=== PATIENT | male | born 1955 | race Caucasian/White ===

== ENCOUNTER 2020-05-14 06:49 | Outpatient (CLI) | payer BC, SELFPAY ==
[2020-05-14 07:34] LABS: Basophils Absolute Auto 0.1 K/mm3 (0.0-0.1); Basophils Percent Auto 1.2 % (0.2-1.2); Eosinophils Absolute Auto 0.2 K/mm3 (0-0.3); Eosinophils Percent Auto 2.6 % (0-4.4); Hematocrit 47.6 % (42.0-52.0); Immature Granulocyte Absolute 0.03 K/mm3 (0.00-0.031); Immature Granulocyte Percent A 0.5 % (0-0.5); Lymphocytes Absolute Auto 2.24 K/mm3 (0.9-3.2); Lymphocytes Percent Auto 34.3 % (18.3-44.2); Mean Corpuscular HGB Conc 33.6 g/dl (32-36); Mean Corpuscular Hemoglobin 31.1 pg (26-34); Mean Corpuscular Volume 92.6 fl (80-100); Mean Platelet Volume 9.5 fl (7.4-10.4); Monocytes Absolute Auto 0.7 K/mm3 (0.1-0.6); Neutrophils Absolute Auto 3.4 K/mm3 (1.3-6.7); Neutrophils Percent Auto 51.4 % (45.5-73.1); Platelet Count Result 249 k/mm3 (150-375); Red Blood Count 5.14 M/mm3 (4.6-6.20); Red Cell Distribution Width 13.4 % (11.5-14.5); White Blood Count 6.5 K/mm3 (4.5-10.0)
[2020-05-14 07:46] LABS: Alanine Aminotransferase 32 U/L (4-50); Albumin Level 4.1 g/dL (3.5-5.1); Alkaline Phosphatase 82 U/L (38-126); Anion Gap 8 mmol/L (8-16); Aspartate Amino Transferase 32 U/L (17-59); Bilirubin,Total 0.9 mg/dL (0.2-1.3); Blood Urea Nitrogen 16 mg/dL (9-20); Calcium 8.9 mg/dL (8.4-10.2); Carbon Dioxide 28 mmol/L (22-30); Chloride 103 mmol/L (98-107); Cholesterol 231 mg/dL (0-200); Estimated Glomerular Filt Rate > 60; Glucose 109 mg/dL (75-110); HDL Direct 41 mg/dL; Potassium 4.5 mmol/L (3.4-5.0); Sodium 139 mmol/L (137-145); Triglycerides 135 mg/dL (<150)
[2020-05-14 07:57] LABS: LDL Cholesterol Direct 179 mg/dL
[2020-05-14 08:16] LABS: Prostate Specific Antigen 0.3 ng/mL (< OR = 4.0)
[2020-05-14 08:21] LABS: Vitamin D 25 Hydroxy 26.9 ng/mL
[2020-05-22 22:44] LABS: Testosterone Total 227 ng/dL (250-1100)
== END 2020-05-14 06:50 | disposition home or self-care (01) ==
PROVIDERS: PCP Family Medicine; Visit Provider Family Medicine
DX: E78.2 Mixed hyperlipidemia (principal); R53.82 Chronic fatigue, unspecified; Z12.5 Encounter for screening for malignant neoplasm of prostate; E55.9 Vitamin D deficiency, unspecified; R68.82 Decreased libido
CPT/HCPCS: 36415; 80048; 80061; 80076; 82306; 84153; 84402; 84403; 84443; 85025; G0103

== ENCOUNTER 2021-01-23 09:25 | Emergency (ER) | payer OTHER, SELFPAY ==
--- NOTE | ~2021-01-23 | XR_ITS ---
XR hip RT 2V w AP pelvis DATE: 01/23/2021 10:14 INDICATION: Patient fell on concrete. Right hip injury, pain TECHNIQUE: AP pelvis. AP and lateral right hip. COMPARISON: None FINDINGS: The pubic symphysis and sacroiliac joints are intact. Hip joint spaces appear symmetric and relatively preserved. No pelvic fracture or bone destruction. No fracture, dislocation, avascular necrosis or bone destruction of the right hip. Degenerative disc disease at L4-5 and L5-S1. IMPRESSION: No pelvic or right hip fracture or dislocation Reviewed, dictated and finalized at location B.
--- NOTE | ~2021-01-23 | CT_ITS ---
EXAMINATION: CT abdomen pelvis w con DATE: 01/23/2021 10:25 INDICATION: Fall with right hip/pelvis pain. TECHNIQUE: Computed tomography (CT) of the abdomen and pelvis was performed with 100 mL Omnipaque-350 intravenous contrast. Automated exposure control and iterative reconstruction technique were employe d. The dose-length product was 1322.32 mGy-cm. COMPARISON: None FINDINGS: Elevation of the right hemidiaphragm with mild discoid atelectasis in the right middle and lower lobe s. Heart size is normal. Atherosclerotic coronary artery calcification. No pericardial or pleural eff usion. Diffuse hepatic steatosis with focal sparing along the gallbladder fossa and more focal steato sis at the ligamentum teres. Gallbladder, spleen, pancreas, right kidney and bilateral adrenal glands are normal. 8 mm left renal cyst. Punctate calcification in the tail of the otherwise normal-appeari ng pancreas which likely represent sequela of chronic pancreatitis. Mild scattered colonic diverticul osis without adjacent inflammatory change to suggest diverticulitis. Small bowel and appendix are nor mal. Bladder and prostate are unremarkable. No free intraperitoneal gas or fluid. No pathologically e nlarged abdominal or pelvic lymphadenopathy. There is calcified atherosclerosis of the aorta and many of the other arteries. Acute appearing compression fracture involving the right side of the superior endplate of L3 with approximately 20% vertebral body height loss. No other acute osseous abnormality . IMPRESSION: 1. Superior endplate compression fracture at the right side of L3 with mild right sided vertebral bod y height loss. 2. No acute intra-abdominal/pelvic process. Reviewed, dictated and finalized at location A. IMPRESSION: 1. Superior endplate compression fracture at the right side of L3 with mild rig ht sided vertebral body height loss. 2. No acute intra-abdominal/pelvic process.
[2021-01-23 09:25] VITALS: BP 156/109; PULSE 95; RESP 20; TEMP 36.6; O2SAT 99
[2021-01-23 09:49] LABS: Basophils Absolute Auto 0.1 K/mm3 (0.0-0.1); Basophils Percent Auto 0.8 % (0.2-1.2); Eosinophils Absolute Auto 0.1 K/mm3 (0-0.3); Eosinophils Percent Auto 0.8 % (0-4.4); Hematocrit 47.8 % (42.0-52.0); Hemoglobin 16.1 g/dL (14.0-18.0); Immature Granulocyte Absolute 0.02 K/mm3 (0.00-0.031); Immature Granulocyte Percent A 0.3 % (0-0.5); Lymphocytes Absolute Auto 1.65 K/mm3 (0.9-3.2); Lymphocytes Percent Auto 21.1 % (18.3-44.2); Mean Corpuscular HGB Conc 33.7 g/dl (32-36); Mean Corpuscular Hemoglobin 30.8 pg (26-34); Mean Corpuscular Volume 91.6 fl (80-100); Mean Platelet Volume 9.3 fl (7.4-10.4); Monocytes Absolute Auto 0.8 K/mm3 (0.1-0.6); Monocytes Percent Auto 9.6 % (2.6-8.5); Neutrophils Absolute Auto 5.3 K/mm3 (1.3-6.7); Neutrophils Percent Auto 67.4 % (45.5-73.1); Platelet Count Result 233 k/mm3 (150-375); Red Blood Count 5.22 M/mm3 (4.6-6.20); White Blood Count 7.8 K/mm3 (4.5-10.0)
[2021-01-23 09:52] LABS: Add Urine Microscopic? YES; Appearance Urine Clear (Clear); Bilirubin Urine Negative (Negative); Blood Urine 1+ (Negative); Color Urine Yellow (Yellow); Glucose Urine UA Negative (Negative); Ketones Urine Negative (Negative); Leukocyte Esterase Ur Negative LEU/UL (Negative); Nitrate Urine Negative (Negative); Protein Urine Negative (Negative); Urobilinogen Urine Negative mg/dL (<2.0); WBC Urine 0-3 /hpf
[2021-01-23 09:58] LABS: INR 0.9; Prothrombin Time 11.7 Seconds (11.1-14.7)
[2021-01-23 09:59] LABS: Alanine Aminotransferase 31 U/L (4-50); Albumin Level 4.3 g/dL (3.5-5.1); Alkaline Phosphatase 90 U/L (38-126); Anion Gap 8 mmol/L (8-16); Aspartate Amino Transferase 30 U/L (17-59); Bilirubin,Total 1.4 mg/dL (0.2-1.3); Blood Urea Nitrogen 11 mg/dL (9-20); Carbon Dioxide 25 mmol/L (22-30); Chloride 103 mmol/L (98-107); Estimated CRCL calculation 119 ml/min; Estimated Glomerular Filt Rate > 60; Glucose 96 mg/dL (65-110); Partial Thromboplastin Time 24.3 SECONDS (22.3-36.8); Potassium 3.9 mmol/L (3.4-5.0); Sodium 136 mmol/L (137-145)
[2021-01-23] MEDS: HYDROcodone/acetaminophen (*CRX) 5-325 MG TABLET 1 TAB PO (11:20)
[2021-01-23 11:24] VITALS: BP 127/88; PULSE 84; RESP 22; O2SAT 100
--- NOTE | 2021-01-23 13:10 | ED.FALL ---
HPI - Fall General Chief Complaint: Fall Stated Complaint: FALL WEDNESDAY/ HIP PAIN Source: RN notes reviewed History of Present Illness HPI Narrative: Patient presents to emergency department from home via EMS for fall. Patient states he fell 2 days ago. States he was walking when he slipped and fell with his legs going out from under him states he landed on his buttocks and lower back and fell back striking his head unsure of loss of consciousness he states that since that time he had pain in his right lower flank that hurts worse with movement as well in his right lateral hip states he has been able to get up and walk but has been using a walker denies any chest pain, shortness of breath nausea vomiting or any other symptoms Related Data Home Medications Medication Instructions Recorded Confirmed No Home Medications 01/23/21 01/23/21 Allergies Allergy/AdvReac Type Severity Reaction Status Date / Time No Known Allergies Allergy Verified 01/23/21 09:29 Review of Systems Review of Systems: Gen.: Denies fevers or chills ENT: Denies congestion Respiratory: Denies shortness of breath or cough CV: Denies chest pain or palpitations GI: Denies abdominal pain nausea, emesis or diarrhea Musculoskeletal: See HPI Neuro: Denies numbness, tingling, weakness or focal weakness Skin: Denies rash Except as documented, all other systems reviewed and negative PMF Past Medical History Medical History BMI 31.0-31.9,adult BMI 32.0-32.9,adult Cervical myelopathy Chronic fatigue Decreased libido Foot drop, right Hereditary and idiopathic neuropathy, unspecified Impingement syndrome, shoulder, left Mixed hyperlipidemia Primary osteoarthritis of both knees Family History Family History Father Family history of premature coronary heart disease Family history of coronary artery disease Sibling Family history of congenital heart disease Mother Family history of congenital heart disease Social History Social History Second hand tobacco smoke exposure: No Alcohol intake: current Substance use: current Substance use type: marijuana Exam Narrative: APPEARANCE: No acute distress, nontoxic, resting in bed EYES: EOMI, PERRL HEENT: Normocephalic, atraumatic, OMM Neck supple no midline tenderness palpation RESPIRATORY: No respiratory distress Clear to auscultation bilaterally with no rhonchi wheezing or rales. CARDIOVASCULAR: Regular rate and rhythm without murmurs rubs or gallops. ABDOMINAL: Soft, nondistended, tender palpation right upper quadrant right lower quadrant no tenderness left upper quadrant left lower quadrant no rebound or guarding MUSCULOSKELETAl: Moves all extremities. No clubbing, cyanosis or edema. Tender palpation of the right lateral posterior hip no sign ecchymosis pain with flexion greater than 45 degrees no tenderness of the right knee or ankle dorsalis pedis pulse 2+ Novastan intact no tenderness of the left lower extremity the bilateral upper extremities Back: No midline thoracic or lumbar tenderness palpation tender palpation right paravertebral muscles L3-5 NEURO: Awake and alert x 4. Following commands, speech normal, no focal deficits SKIN:: Warm, dry. No rashes lesions or abrasions PSYCHIATRIC: Normal affect/mood, Course Course Emergency Course: Discussed with Dr. Soto presentation work-up agrees with plan for discharge with follow-up as an outpatient Discussed with patient results of workup and diagnosis. Discussed need for follow-up with primary care, proper use of medication, and reasons to return to the emergency department. Patient understands and agrees to current treatment plan Vital Signs Vital signs: Vital Signs Temperature 97.9 F 01/23/21 09:25 Pulse Rate 95 01/23/21 09:25 Respiratory Rate 20 01/23/21 09:25 Bloo
[2021-01-23 13:47] VITALS: BP 130/79; PULSE 88; RESP 16; O2SAT 100
== END 2021-01-23 13:49 | disposition home or self-care (01) ==
PROVIDERS: Emergency Provider Emergency Medicine; PCP Family Medicine
DX: S32.030A Wedge compression fracture of third lumbar vertebra, initial encounter for closed fracture (principal); E78.2 Mixed hyperlipidemia; M75.42 Impingement syndrome of left shoulder; M17.0 Bilateral primary osteoarthritis of knee; G95.9 Disease of spinal cord, unspecified; G60.9 Hereditary and idiopathic neuropathy, unspecified; W01.0XXA Fall on same level from slipping, tripping and stumbling without subsequent striking against object, initial encounter
CPT/HCPCS: 36415; 73502; 74177; 80053; 81001; 85025; 85610; 85730; 99284; A9270; Q9967

== ENCOUNTER 2022-11-19 13:40 | Outpatient (CLI) | payer MEDICARE, SELFPAY ==
--- NOTE | ~2022-11-19 | XR_ITS ---
EXAMINATION: XR knee RT min 4V DATE: 11/19/2022 14:05 INDICATION: Right knee pain, osteoarthritis TECHNIQUE: Four views of the right knee were obtained. COMPARISON: None. FINDINGS: There is mild lateral subluxation of the tibia with respect to the distal femur. There is t ricompartmental osteoarthritis, severe in the patellofemoral and medial compartments. There is calcif ied atherosclerosis. A small knee joint effusion is present. There are large osteophytes of the femor al condyles as well as the patella. IMPRESSION: 1. Advanced right knee osteoarthritis. Reviewed, dictated and finalized at location L.
--- NOTE | ~2022-11-19 | XR_ITS ---
EXAMINATION: XR knee LT min 4V DATE: 11/19/2022 14:05 INDICATION: Left knee pain, osteoarthritis TECHNIQUE: Four views of the left knee were obtained. COMPARISON: None. FINDINGS: There is mild lateral subluxation of the tibia with respect to the distal femur. There is t ricompartmental osteoarthritis, severe in the patellofemoral and medial compartments. There is calcif ied atherosclerosis. A small knee joint effusion is present. There are large osteophytes of the femor al condyles as well as the patella. IMPRESSION: 1. Advanced left knee osteoarthritis. Reviewed, dictated and finalized at location L.
== END 2022-11-19 13:41 | disposition home or self-care (01) ==
PROVIDERS: PCP Family Medicine; Visit Provider Family Medicine
DX: M17.0 Bilateral primary osteoarthritis of knee (principal)
CPT/HCPCS: 73564

== ENCOUNTER 2023-06-08 14:38 | Outpatient (CLI) | payer MEDICARE, SELFPAY ==
--- NOTE | ~2023-06-08 | US_ITS ---
EXAMINATION: US carotid duplex BI DATE: 06/08/2023 15:22 INDICATION: Vertigo. Dizziness and giddiness. TECHNIQUE: Grayscale, color Doppler, and pulsed Doppler images of the cervical carotid arteries were obtained. The degree of vessel stenosis is placed in one of the following categories: normal, <50%, 5 0-69%, >=70% but less than near-occlusion, near-occlusion, or total occlusion. Note that percent sten osis relative to normal distal artery lumen diameter is indirectly measured from velocity measurement s as described by Srinivasan, et al. Radiology 2003; 229:340-346. COMPARISON: None. FINDINGS: RIGHT: The right common carotid artery (CCA) peak systolic velocity (PSV) is 108 cm/s. The right internal ca rotid artery (ICA) PSV is 77 cm/s. The right ICA end-diastolic velocity (EDV) is 23 cm/s. The right I CA/CCA PSV ratio is 0.7. Grayscale and color Doppler images yield an estimate of <50% diameter reduct ion from plaque in the ICA. The external carotid artery (ECA) PSV is 147 cm/s. There is antegrade peter w in the right vertebral artery. LEFT: The left CCA PSV is 111 cm/s. The left ICA PSV is 76 cm/s. The left ICA EDV is 31 cm/s. The left ICA/ CCA PSV ratio is 0.7. Grayscale and color Doppler images yield an estimate of <50% diameter reduction from plaque in the ICA. The ECA PSV is 104 cm/s. There is antegrade flow in the left vertebral arter y. IMPRESSION: 1. <50% stenosis in the right internal carotid artery. 2. <50% stenosis in the left internal carotid artery. Reviewed, dictated and finalized at location A. SIGN MAKER
== END 2023-06-08 14:39 | disposition home or self-care (01) ==
PROVIDERS: PCP Family Medicine; Visit Provider Nurse Practitioner Family
DX: R42 Dizziness and giddiness (principal); I65.23 Occlusion and stenosis of bilateral carotid arteries
CPT/HCPCS: 93880

== ENCOUNTER 2023-06-09 13:17 | Outpatient (CLI) | payer MEDICARE, SELFPAY ==
--- NOTE | 2023-06-09 13:39 | ECHO_ITS ---
Patient Info Name: Papi Ambrocio Age: 67 years : 1955 Gender: Male Ht: 62 in Wt: 240 lbs BSA: 2.25 m2 HR: 79 bpm BP: 129 / 87 mmHg Technical Quality: Fair Exam Date: 06/09/2023 1:58 PM Exam Location: Echo Lab Patient Status: Outpatient Admit Date: 06/09/2023 Staff Ordering Physician: Chanel Yuen Jigsaw Operator: Lisbet Weber RDCS Attending Provider: Chanel Yuen Referring Physician: Wilfrid SEAMAN; Exam Type: CA echo doppler color flow Study Info Indications - CHEST PAIN Complete two-dimensional, color flow and Doppler transthoracic echocardiogram is performed. Summary 1. Complete two-dimensional, color flow and Doppler transthoracic echocardiogram is performed. 2. Left ventricular chamber dimension is normal. 3. Left ventricular systolic function is normal, estimated at 60-65%. 4. The left ventricular diastolic function is grade I diastolic dysfunction. 5. E/e' 7 is not elevated. 6. The mitral valve has mildly calcified annulus. 7. There is trace tricuspid valve regurgitation. 8. No pulmonary hypertension, estimated pulmonary arterial systolic pressure is 37 mmHg. 9. There is trace pulmonic regurgitation. Left Ventricle E/e' 7 is not elevated. Left ventricular chamber dimension is normal. Left ventricular systolic function is normal, estimated at 60-65%. The left ventricular diastolic function is grade I diastolic dysfunction. Right Ventricle Right ventricular systolic function is normal and with normal TAPSE 2.2 cm. Right ventricular chamber dimension is normal. Left Atria Left atrial chamber dimension is normal. Right Atria Right atrial chamber dimension is normal. Aortic Valve The aortic valve is trileaflet. There is no aortic valve stenosis. There is no aortic valve regurgitation. Pulmonic Valve There is trace pulmonic regurgitation. Mitral Valve The mitral valve has mildly calcified annulus. There is no mitral valve stenosis. There is no mitral valve regurgitation. Tricuspid Valve There is trace tricuspid valve regurgitation. No pulmonary hypertension, estimated pulmonary arterial systolic pressure is 37 mmHg. Pericardium/Pleural There is no pericardial effusion. Inferior Vena Cava Normal inferior vena cava with >50% collapse upon inspiration consistent with normal right atrial pressure, 5 mmHg. Aorta The aortic root size at the sinus of Valsalva is normal. Left Ventricular Outflow Tract Name Value Normal LVOT 2D LVOT Diameter 2.1 cm LVOT Doppler LVOT Peak Gradient 5 mmHg LVOT Mean Gradient 3 mmHg LVOT VTI 22 cm LVOT VTI/AV VTI Ratio 1.1 LVOT Stroke Volume 75 ml LVOT CO 17.9 l/min LVOT CI 8.0 l/min/m2 Pulmonic Valve Name Value Normal RVOT Doppler RVOT Peak Gradient
== END 2023-06-09 13:18 | disposition home or self-care (01) ==
LOC: ANHCARD 13:18
PROVIDERS: PCP Family Medicine; Visit Provider Nurse Practitioner Family
DX: R07.89 Other chest pain (principal)
CPT/HCPCS: 93306

== ENCOUNTER 2023-08-18 08:28 | Outpatient (CLI) | payer MEDICARE, SELFPAY ==
--- NOTE | ~2023-08-18 | NM_ITS ---
EXAMINATION: NM ana laura stress w perfusion DATE: 08/18/2023 12:07 INDICATION: Other forms of dyspnea. TECHNIQUE: Rest images were obtained following intravenous administration of 10.6 mCi Tc99m tetrofosm in (Myoview). The patient was infused intravenously with Lexiscan (regadenoson). Then, 33.66 mCi Tc99 m tetrofosmin (Myoview) was administered intravenously, and stress images were obtained. Data was rec onstructed into short axis and horizontal and vertical long axis SPECT images. Gated SPECT images wer e also obtained. COMPARISON: None. FINDINGS: There is no definite reversible or fixed perfusion abnormality to suggest ischemia or infar ction. There is no segmental wall motion abnormality. Left ventricular ejection fraction measures 6 9%. IMPRESSION: 1. No definite ischemia or infarct. 2. Normal left ventricular ejection fraction measuring 69%. Reviewed, dictated and finalized at location A. N INSPECTOR
--- NOTE | 2023-08-18 08:34 | EST_ITS ---
Patient Info Name: Papi Ambrocio Age: 68 years : 1955 Gender: Male Ht: 71 in Wt: 240 lbs BSA: 2.37 m2 HR: 67 bpm BP: 142 / 83 mmHg Exam Date: 08/18/2023 9:36 AM Exam Location: Echo Lab Patient Status: Outpatient Admit Date: 08/18/2023 Staff Ordering Physician: Akira Perry DO Attending Provider: Akira Perry DO Exercise Technologist: Kayla Cash RDCS Exercise Physician: Akira Perry DO Exam Type: CA stress ana laura w NM Study Info A regadenoson stress test was performed. Summary 1. 1. Negative lexiscan stress test for ischemic ST changes by ECG criteria. 2. 2. Stable hemodynamics throughout the test. 3. 3. Nuclear scan to follow and will be reported separately. Please correlate with it. 4. 4. Patient informed of the above results. Protocol: Lexiscan Stress ECG Details Stage: REST Duration (min): 0 min : 56 sec HR (bpm): 67 SBP (mmHg): 142 DBP (mmHg): 83 Stage: REST Duration (min): 3 min : 50 sec HR (bpm): 81 SBP (mmHg): 142 DBP (mmHg): 83 Stage: STAGE 1 Duration (min): 0 min : 59 sec HR (bpm): 89 SBP (mmHg): 134 DBP (mmHg): 89 Stage: RECOVERY Duration (min): 1 min : 0 sec HR (bpm): 99 SBP (mmHg): 134 DBP (mmHg): 89 Stage: RECOVERY Duration (min): 2 min : 0 sec HR (bpm): 92 SBP (mmHg): 134 DBP (mmHg): 89 Stage: RECOVERY Duration (min): 3 min : 0 sec HR (bpm): 96 SBP (mmHg): 136 DBP (mmHg): 85 Stage: RECOVERY Duration (min): 3 min : 4 sec HR (bpm): 96 SBP (mmHg): 136 DBP (mmHg): 85 Rest HR: 81 bpm Peak HR: 103 bpm Rest Sys BP: 142 mmHg Peak Sys BP: 136 mmHg Max Pred HR: 154 bpm % Max Pred HR: 67 % Target HR: 131 bpm Max RPP: 14,008 bpm*mmHg Termination Reason: Completed protocol Cardiac Symptoms: None Total Time: 1 min : 0 sec Rest Bo BP: 83 mmHg Peak Bo BP: 85 mmHg Total Dose: 0.4 mg Resting ECG Sinus rhythm. Stress ECG No ST changes. Arrhythmias None. Report Signatures
== END 2023-08-18 08:29 | disposition home or self-care (01) ==
PROVIDERS: PCP Family Medicine; Visit Provider Internal Medicine Cardiovascular Disease
DX: R06.09 Other forms of dyspnea (principal)
CPT/HCPCS: 78452; 93017; A9502; J2785

== ENCOUNTER 2025-01-10 18:50 | Emergency (ER) | payer MEDICARE, SELFPAY ==
--- NOTE | ~2025-01-10 | CT_ITS ---
History: Head injury PROCEDURE: CT head without contrast. COMPARISON: None TECHNIQUE: Axial imaging of the head performed from the skull base to the vertex without IV contrast. Sagittal a nd coronal reformations obtained. DLP: 681 mGy-cm FINDINGS: Bifrontal atrophy. The ventricles are normal in size, shape and position. There is no mass, mass effect or midline shift. There is no abnormal extra-axial fluid collection or intracranial hemorrhage. Visualized paranasal sinuses are clear. The mastoid air cells are well aerated. No acute displaced fractures within the overlying cranium. Impression: Bifrontal atrophy, without acute intracranial hemorrhage or suspicious mass effect. Reviewed, dictated and finalized at location A. Impression: Bifrontal atrophy, without acute intracranial hemorrhage or suspicious mass eff ect.
--- NOTE | ~2025-01-10 | CT_ITS ---
EXAMINATION: 1. CT facial & cervical spine wo DATE: 01/10/2025 20:13 INDICATION: Head injury while intoxicated presenting with facial lacerations. TECHNIQUE: 1. Computed tomography (CT) of the maxillofacial region and of the cervical spine were performed with out intravenous contrast. Sagittal and coronal reconstructions of both regions were obtained. Automat ed exposure control and iterative reconstruction technique were employed. The dose-length product was 558.32 mGy-cm. COMPARISON: None. FINDINGS: Maxillofacial CT: No acute maxillofacial fractures. Specifically the nasal bones, mandible, zygomatic arches and ventura of the orbits and paranasal sinuses are all intact. Orbits are normal. Mastoid air cells, middle ear cavities and nasal sinuses are clear. Continued small contusion in the right malar region. There are multiple tiny densities in the superficial subcutaneous tissues at the bilateral cheeks and malar reg ions which could represent either dystrophic calcification or debris associated with reported lacerat ions. Atherosclerotic calcifications at the bilateral carotid bulbs. Cervical spine CT: Straightening of the normal cervical lordosis. Vertebral body heights are normal. No fracture. Severe disc height loss with degenerative endplate changes and severe bilateral uncovertebral osteoarthriti s at C5-C6 and C6-C7. Mild disc height loss at the remaining more cephalad cervical levels. Small pos terior disc ossified complexes resulting in mild central canal stenosis at C5-C6 and C6-C7. Severe fa cet osteoarthritis on the left at C2-C3 through C4-C5 and bilaterally at C7-T1. Mild to moderate face t osteoarthritis the remaining cervical levels. There is moderate neural foraminal stenosis on the le ft at C4-C5 and C6-C7 and on the right at C5-C6. Mild neural from stenosis at the remaining bilateral cervical neural foramina. At the apical pleural-parenchymal scarring. IMPRESSION: 1. No maxillofacial fractures. 2. Tiny densities in the superficial subcutaneous tissues at the bilateral cheeks and malar regions w hich could represent dystrophic calcification versus foreign debris related to reported lacerations. 3. Severe lower cervical spondylosis. No acute osseous abnormality. Reviewed, dictated and finalized at location A. IMPRESSION: 1. No maxillofacial fractures. 2. Tiny densities in the superficial subcutaneous tissues at the bilateral elisa ks and malar regions which could represent dystrophic calcification versus fore ign debris related to reported lacerations. 3. Severe lower cervical spondylosis. No acute osseous abnormality.
--- NOTE | 2025-01-10 18:56 | ECG_ITS ---
Test Date: 2025-01-10 19:10:59 Measurements Intervals [place] Rate: 79 P: 62 [place]: 164 QRS: 71 QRSD: 90 T: 74 QT: 362 QTc: 417 Interpretive Statements SINUS RHYTHM WARNING: DATA QUALITY MAY AFFECT INTERPRETATION No previous ECG available for comparison Electronically Signed On 01-12-2025 15:35:42 CDT by Marcin Pitts M.D.
--- NOTE | 2025-01-10 18:57 | ED.ALCOHOL ---
HPI - Alcohol General Chief Complaint: Alcohol <Ela Acevedo APRN - Last Filed: 01/10/25 18:59> Stated Complaint: etoh, fall, combative, facial lac <Ela Acevedo APRN - Last Filed: 01/10/25 18:59> Time Seen by Provider: 01/10/25 18:55 <Ela Acevedo APRN - Last Filed: 01/10/25 18:59> Focused HPI: Patient is a 69-year-old male who presents to the ER with alcohol intoxication and a laceration to his right upper lip after sustaining a fall. He reports he is not on any blood thinners. Patient reports he drinks alcohol every day. He endorses a history of hyperlipidemia. Upon time of examination patient endorses right upper lip pain. He reports when he fell earlier his face landed on the floor. Patient denies any cervical spine pain, lumbar spine pain, abdominal pain, or urinary symptoms. GENERAL: Ill-appearing, well-nourished, and in no acute distress. HEAD: Normocephalic, + laceration to R upper lip-bleeding controlled. CHEST: Clear to auscultation. ?No respiratory distress. HEART: Regular rate and rhythm.? NEURO: ?Alert and oriented x3. Intoxicated Patient screened in triage and initial orders placed.? ?Additional care and disposition to be based upon?diagnostic testing and treatment. <Ela Acevedo APRN - Last Filed: 01/10/25 18:59> History of Present Illness HPI narrative: Agree with the above with the following additions/corrections: Patient confirms he has a primary care physician. He endorses drinking alcohol. It was initially stated he drink 2 beers and 2 shots and he fell. He was initially combative and he is disgruntled while in the ED, stating he is going to leave. Upon conversing with him, he is far more pleasant. He lost consciousness. He cannot rememeber his last tetanus shot. States only mild pain, states nothign I can't handle Takes cholesterol medicine but not on anticoagulation. <Dorothy Willams MD - Last Filed: 01/11/25 01:23> Related Data Allergies/Adverse Reactions: Allergies Allergy/AdvReac Type Severity Reaction Status Date / Time No Known Allergies Allergy Verified 08/23/24 13:11 <Ela Acevedo, JAVA PERFORMANCE ENGINEER - Last Filed: 01/10/25 18:59> PMFSH Past Medical History Medical History: Medical History Hand numbness Arthritis of knee Spinal compression fracture BMI 32.0-32.9,adult BMI 31.0-31.9,adult Decreased libido Chronic fatigue Cervical myelopathy Foot drop, right Hereditary and idiopathic neuropathy, unspecified Impingement syndrome, shoulder, left Mixed hyperlipidemia Primary osteoarthritis of both knees <Ela Acevedo, JAVA PERFORMANCE ENGINEER - Last Filed: 01/10/25 18:59> Family History Family History: Family History Father Family history of coronary artery disease Acute myocardial infarction Sibling Family history of congenital heart disease Acute myocardial infarction Mother Family history of congenital heart disease <Ela Acevedo, JAVA PERFORMANCE ENGINEER - Last Filed: 01/10/25 18:59> Social History Social History: Social History Smoking status: Former smoker Second hand tobacco smoke exposure: Yes Alcohol intake: current Substance use: current Substance use type: marijuana Do You Feel Safe in your Home?: Yes Lack of Transportation: No Lack of Food: Never True Current Housing: I Have Housing Concerned About Future Housing: No Difficulty Paying Gas/Electric Bills: No Difficulty Paying for Meds: No Currently Unemployed: No Education: High School Diploma/GED Difficulty w/ Childcare or Family Care: No Living arrangements: with family Occupation/Education: retired 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 HEAD:Swelling overlying right cheek with fluid/induration but skin intact, no ecchymosis. EYES: Non injected, non icteric ENT: Gross auditory acuity intact. Able to pucker lips/close lips, symmetrically engages. 1.5 cm through and through lip laceration on the right w/o crossing zarina border. Broken frontal tooth. NECK: Supple. No meningismus. CHEST: Speaking in full sentences. No respiratory distress. HEART: Regular rate and rhythm. . ABDOMEN: Soft, nondistended. EXTREMITIES: Normal range of motion. No lower extremity edema. SKIN: Warm, dr NEURO: No focal deficits. Alert and oriented. Answering questions. Following commands. Normal speech without aphasia or dysarthria. PSYCH: Normal mood and affect. <Dorothy Willams MD - Last Filed: 01/11/25 01:23> Course Vital Signs Vital signs: Vital Signs Temperature 98.1 F 01/11/25 00:00 Pulse Rate 94 01/11/25 00:00 Respiratory Rate 16 01/11/25 00:00 Blood Pressure 128/79 01/11/25 00:00 Pulse Oximetry 99 01/11/25 00:00 Temperature 98.1 F 01/11/25 00:00 Pulse Rate 94 01/11/25 00:00 Respiratory Rate 16 01/11/25 00:00 Blood Pressure 128/79 01/11/25 00:00 Pulse Oximetry 99 01/11/25 00:00 <Ela Acevedo APRN - Last Filed: 01/10/25 18:59> Vital Signs Temperature 98.1 F 01/11/25 00:00 Pulse Rate 94 01/11/25 00:00 Respiratory Rate 16 01/11/25 00:00 Blood Pressure 128/79 01/11/25 00:00 Pulse Oximetry 99 01/11/25 00:00 Temperature 98.1 F 01/11/25 00:00 Pulse Rate 94 01/11/25 00:00 Respiratory Rate 16 01/11/25 00:00 Blood Pressure 128/79 01/11/25 00:00 Pulse Oximetry 99 01/11/25 00:00 <Dorothy Willams MD - Last Filed: 01/11/25 01:23> Procedures Laceration Laceration 1: Date: 01/11/25 <Dorothy Willams MD - Last Filed: 01/11/25 01:23> Time: 00:35 <Dorothy Willams MD - Last Filed: 01/11/25 01:23> Site: lip <Dorothy Willams MD - Last Filed: 01/11/25 01:23> Side (If applicable): right <Dorothy Willams MD - Last Filed: 01/11/25 01:23> Size (cm): 1.5 <MD Claude Torres Last Filed: 01/11/25 01:23> Description: linear and flap <Dorothy Willams MD - Last Filed: 01/11/25 01:23> Depth: [id number] <MD Claude Torres Last Filed: 01/11/25 01:23> Pre-repair: wound explored and irrigated <Dorothy Willams MD - Last Filed: 01/11/25 01:23> ====== Skin Level ======: ====== Subcutaneous Layer ======: ====== Muscle Layer ======: ====== Tendon Layer ======: Dressing: COMPLEX laceration repair due to location, through and through status, etc. 2 (two) 5-0 sutures absorbable chromic gut for intraoral lip closure 3 (three) 6-0 Ethilon sutures simple interrupted nonabsorbable for outer lip Patient tolerated well. <Dorothy Willams MD - Last Filed: 01/11/25 01:23> Nerve Block Nerve Block 1: Nerve block date: 01/11/25 <Dorothy Willams MD - Last Filed: 01/11/25 01:23> Nerve block time: 00:30 <Dorothy Willams MD - Last Filed: 01/11/25 01:23> Local Anesthetic: lidocaine 1% <Dorothy Willams MD - Last Filed: 01/11/25 01:23> Amount of anesthesia used (mL): 4 <MD Claude Torres Last Filed: 01/11/25 01:23> Side: right <MD Claude Torres Last Filed: 01/11/25 01:23> Intraoral Nerve Block: infraorbital <Dorothy Willams MD - Last Filed: 01/11/25 01:23> Procedure Successful: Yes <Dorothy Willams MD - Last Filed: 01/11/25 01:23> Patient Tolerated Procedure: well <Dorothy Willams MD - Last Filed: 01/11/25 01:23> Complications: none <Dorothy Willams MD - Last Filed: 01/11/25 01:23> MDM - Alcohol MDM Narrative Medical decision making narrative: Patient is a 69-year-old male who presents with a lip laceration after he fell. He does endorse drinking alcohol tonight. He lost consciousness. In the emergency department he is afebrile with vital signs within normal limits. Physical exam shows a through and through lip laceration without involvement of the vermil[place] border. Regional nerve block performed followed by repair as above. Patient tolerates well. Mild leukocytosis. Mild hypokalemia. Will provide oral repletion. Patient's ethanol level 295. Patient could not recall last tetanus shot so updated. Also provided analgesic medication. <Dorothy Willams MD - Last Filed: 01/11/25 01:23> Differential Diagnosis Differential diagnosis: Likely alcohol intoxication and other (broken dentition; facial bone fracture; laceration/complex laceration; intracranial hemorrhage) <Dorothy Willams MD - Last Filed: 01/11/25 01:23> Lab Data Attestation: I reviewed the patient's lab results. <Dorothy Willams MD - Last Filed: 01/11/25 01:23> Result diagrams: 01/10/25 19:09 01/10/25 19:09 <Ela Acevedo APRN - Last Filed: 01/10/25 18:59> Labs: Lab Results 01/10/25 01/10/25 Range/Units 19:09 19:28 WBC 11.1 H (4.5-10.0) K/mm3 RBC 5.04 (4.6-6.20) M/mm3 Hgb 15.7 (14.0-18.0) g/dL Hct 46.8 (42.0-52.0) % MCV 92.9 (80-100) fl MCH 31.2 (26-34) pg MCHC 33.5 (32-36) g/dl RDW 13.0 (11.5-14.5) % Plt Count 242 (150-375) k/mm3 MPV 9.1 (7.4-10.4) fl Immature Gran % (Auto) 0.5 (0-0.5) % Neut % (Auto) 41.2 L (45.5-73.1) % Lymph % (Auto) 48.8 H (18.3-44.2) % [place] % (Auto) 7.1 (2.6-8.5) % Eos % (Auto) 1.7 (0-4.4) % Baso % (Auto) 0.7 (0.2-1.2) % Lymph # (Auto) 5.41 H (0.9-3.2) K/mm3 [place] # (Auto) 0.8 H (0.1-0.6) K/mm3 Eos # (Auto) 0.2 (0-0.3) K/mm3 Baso # (Auto) 0.1 (0.0-0.1) K/mm3 Abs Immat Gran (auto) 0.06 H (0.00-0.031) K/mm3 Absolute Neuts (auto) 4.6 (1.3-6.7) K/mm3 Absolute Nucleated RBC 0.000 (0.0-0.012) K/mm3 Nucleated RBC % 0.0 (0.0-0.2) % PT 13.4 (11.1-14.7) Seconds INR 1.0 APTT 23.8 (22.3-36.8) Seconds Sodium 138 (137-145) mmol/L Potassium 3.3 L (3.4-5.0) mmol/L Chloride 103 (98-107) mmol/L Carbon Dioxide 22 (22-30) mmol/L Anion Gap 13 H (4-12) mmol/L BUN 11 (9-20) mg/dL Creatinine 0.67 L (0.7-1.3) mg/dL Estim Creat Clear Calc Not Reportable Estimated GFR > 60 (59 - ) Glucose 98 (65-110) mg/dL Calcium 8.4 (8.4-10.2) mg/dL Total Bilirubin 1.5 H (0.2-1.3) mg/dL AST 34 (17-59) U/L ALT 28 (6-50) U/L Alkaline Phosphatase 70 (38-126) U/L Total Protein 7.2 (6.3-8.2) g/dL Albumin 4.0 (3.5-5.1) g/dL Urine Color Yellow (Yellow) Urine Appearance Clear (Clear) Urine pH 5.5 (5.0-9.0) Ur Specific [place] 1.005 (1.001-1.035) Urine Protein Negative (Negative) mg/dL Urine Glucose (UA) Negative (Negative) mg/dL Urine Ketones Negative (Negative) mg/dL Ur Blood (Man) Negative (Negative) Urine Nitrate Negative (Negative) Urine Bilirubin Negative (Negative) Urine Urobilinogen 0.2 (<2.0) mg/dL Leukocyte Esterase Rfl Negative (Negative) FRANCISCO JAVIER/UL Urine Opiates Screen Negative (Negative) Urine Methadone Screen Negative (Negative) Ur Barbiturates Screen Negative (Negative) Ur Phencyclidine Scrn Negative (Negative) Ur Amphetamine Screen Negative (Negative) U Benzodiazepines Scrn Negative (Negative) Urine Cocaine Screen Negative (Negative) U Cannabinoids Screen Positive A (Negative) Ethyl Alcohol 295 (<10) mg/dL <Ela Acevedo, JAVA PERFORMANCE ENGINEER - Last Filed: 01/10/25 18:59> Lab Results 01/10/25 01/10/25 Range/Units 19:09 19:28 WBC 11.1 H (4.5-10.0) K/mm3 RBC 5.04 (4.6-6.20) M/mm3 Hgb 15.7 (14.0-18.0) g/dL Hct 46.8 (42.0-52.0) % MCV 92.9 (80-100) fl MCH 31.2 (26-34) pg MCHC 33.5 (32-36) g/dl RDW 13.0 (11.5-14.5) % Plt Count 242 (150-375) k/mm3 MPV 9.1 (7.4-10.4) fl Immature Gran % (Auto) 0.5 (0-0.5) % Neut % (Auto) 41.2 L (45.5-73.1) % Lymph % (Auto) 48.8 H (18.3-44.2) % [place] % (Auto) 7.1 (2.6-8.5) % Eos % (Auto) 1.7 (0-4.4) % Baso % (Auto) 0.7 (0.2-1.2) % Lymph # (Auto) 5.41 H (0.9-3.2) K/mm3 [place] # (Auto) 0.8 H (0.1-0.6) K/mm3 Eos # (Auto) 0.2 (0-0.3) K/mm3 Baso # (Auto) 0.1 (0.0-0.1) K/mm3 Abs Immat Gran (auto) 0.06 H (0.00-0.031) K/mm3 Absolute Neuts (auto) 4.6 (1.3-6.7) K/mm3 Absolute Nucleated RBC 0.000 (0.0-0.012) K/mm3 Nucleated RBC % 0.0 (0.0-0.2) % PT 13.4 (11.1-14.7) Seconds INR 1.0 APTT 23.8 (22.3-36.8) Seconds Sodium 138 (137-145) mmol/L Potassium 3.3 L (3.4-5.0) mmol/L Chloride 103 (98-107) mmol/L Carbon Dioxide 22 (22-30) mmol/L Anion Gap 13 H (4-12) mmol/L BUN 11 (9-20) mg/dL Creatinine 0.67 L (0.7-1.3) mg/dL Estim Creat Clear Calc Not Reportable Estimated GFR > 60 (59 - ) Glucose 98 (65-110) mg/dL Calcium 8.4 (8.4-10.2) mg/dL Total Bilirubin 1.5 H (0.2-1.3) mg/dL AST 34 (17-59) U/L ALT 28 (6-50) U/L Alkaline Phosphatase 70 (38-126) U/L Total Protein 7.2 (6.3-8.2) g/dL Albumin 4.0 (3.5-5.1) g/dL Urine Color Yellow (Yellow) Urine Appearance Clear (Clear) Urine pH 5.5 (5.0-9.0) Ur Specific [place] 1.005 (1.001-1.035) Urine Protein Negative (Negative) mg/dL Urine Glucose (UA) Negative (Negative) mg/dL Urine Ketones Negative (Negative) mg/dL Ur Blood (Man) Negative (Negative) Urine Nitrate Negative (Negative) Urine Bilirubin Negative (Negative) Urine Urobilinogen 0.2 (<2.0) mg/dL Leukocyte Esterase Rfl Negative (Negative) FRANCISCO JAVIER/UL Urine Opiates Screen Negative (Negative) Urine Methadone Screen Negative (Negative) Ur Barbiturates Screen Negative (Negative) Ur Phencyclidine Scrn Negative (Negative) Ur Amphetamine Screen Negative (Negative) U Benzodiazepines Scrn Negative (Negative) Urine Cocaine Screen Negative (Negative) U Cannabinoids Screen Positive A (Negative) Ethyl Alcohol 295 (<10) mg/dL <Dorothy Willams MD - Last Filed: 01/11/25 01:23> Imaging Data Radiologist's impression: ITS Impressions Head CT 01/10/25 20:11 Impression: Bifrontal atrophy, without acute intracranial hemorrhage or suspicious mass effect. Head/Cervical Spine/Facial Bones CT 01/10/25 20:32 IMPRESSION: 1. No maxillofacial fractures. 2. Tiny densities in the superficial subcutaneous tissues at the bilateral cheeks and malar regions which could represent dystrophic calcification versus foreign debris related to reported lacerations. 3. Severe lower cervical spondylosis. No acute osseous abnormality. <Ela Acevedo, JAVA PERFORMANCE ENGINEER - Last Filed: 01/10/25 18:59> ITS Impressions Head CT 01/10/25 20:11 Impression: Bifrontal atrophy, without acute intracranial hemorrhage or suspicious mass effect. Head/Cervical Spine/Facial Bones CT 01/10/25 20:32 IMPRESSION: 1. No maxillofacial fractures. 2. Tiny densities in the superficial subcutaneous tissues at the bilateral cheeks and malar regions which could represent dystrophic calcification versus foreign debris related to reported lacerations. 3. Severe lower cervical spondylosis. No acute osseous abnormality. <Dorothy Willams MD - Last Filed: 01/11/25 01:23> ECG Data EKG #1: Attestation: I personally reviewed and interpreted this ECG as follows: <Dorothy Willams MD - Last Filed: 01/11/25 01:23> ECG completion date: 01/10/25 <Dorothy Willams MD - Last Filed: 01/11/25 01:23> ECG completion time: 19:10 <Dorothy Willams MD - Last Filed: 01/11/25 01:23> Interpretation: Normal sinus rhythm at a rate of 79 beats per minute. NV interval 164. QRS 90. QT/QTC 362/417. Good R-wave progression across the precordial leads. No T-wave inversion. Normal ECG. Normal axis. <Dorothy Willams MD - Last Filed: 01/11/25 01:23> Discharge Plan Discharge Clinical Impression: Cerebral atrophy, Cervical spondylosis, Laceration of lip, complicated, Hypokalemia, Marijuana use, Fall, Swelling of face, Acute alcohol intoxication, Broken tooth due to trauma with complication <Ela Acevedo APRN - Last Filed: 01/10/25 18:59> Patient Disposition: Home <Ela Acevedo APRN - Last Filed: 01/10/25 18:59> Condition: Stable <Ela Acevedo APRN - Last Filed: 01/10/25 18:59> Instructions: Antibiotic Form, Care For Your Stitches (DC), Laceration (DC), Hypokalemia (ED), Alcohol Intoxication (ED), Acute Dental Trauma (ED), Fall Prevention (ED), Care For Your Absorbable Stitches (ED) <Ela Acevedo APRN - Last Filed: 01/10/25 18:59> Additional Instructions: Follow up for a wound re-evaluation in 48-72 hours. This can be done by your PCP, at an urgent care, or by returning to the ED. The absorbable sutures will dissolve and not need to be removed but the nonabsorbable ones will need to be removed in 3-5 days. Follow-up with a dentist. Acetaminophen/Tylenol (maximum 4000 mg per day) is safe to take with NSAIDs (ibuprofen/Motrin) for pain relief. Your tetanus shot was updated today. <Ela Acevedo APRN - Last Filed: 01/10/25 18:59> Patient Language: Qatari <Ela Acevedo APRN - Last Filed: 01/10/25 18:59> Prescriptions: New ibuprofen 600 mg tablet 600 mg PO TID PRN (Reason: pain) Qty: 30 0RF acetaminophen 500 mg capsule 1,000 mg PO Q6H PRN (Reason: pain) Qty: 30 0RF No Action rosuvastatin 10 mg tablet See Rx Instructions .ROUTE .COMPLEX Qty: 90 2RF Dose Instruction: 1 TAB ORALLY DAILY Rx Instructions: 1 TAB ORALLY DAILY <Ela Acevedo APRN - Last Filed: 01/10/25 18:59> Follow-up/Referrals: Tato Perez MD [Primary Care Provider] - <Ela Acevedo APRN - Last Filed: 01/10/25 18:59> Stand Alone Forms: Work/School Release IP <Ela Acevedo APRN - Last Filed: 01/10/25 18:59> Time of Disposition: 01:22 <Ela Acevedo APRN - Last Filed: 01/10/25 18:59> 01:22 <Dorothy Willams MD - Last Filed: 01/11/25 01:23>
[2025-01-10 19:16] LABS: Hematocrit 46.8 % (42.0-52.0); Hemoglobin 15.7 g/dL (14.0-18.0); Immature Granulocyte Percent A 0.5 % (0-0.5); Lymphocytes Absolute Auto 5.41 K/mm3 (0.9-3.2); Mean Corpuscular HGB Conc 33.5 g/dl (32-36); Mean Corpuscular Hemoglobin 31.2 pg (26-34); Mean Corpuscular Volume 92.9 fl (80-100); Nucleated Red Blood Cells Absolute Auto 0.000 K/mm3 (0.0-0.012); Nucleated Red Blood Cells Perc 0.0 % (0.0-0.2); Platelet Count Result 242 k/mm3 (150-375); Red Blood Count 5.04 M/mm3 (4.6-6.20); White Blood Count 11.1 K/mm3 (4.5-10.0)
[2025-01-10 19:27] LABS: INR 1.0; Prothrombin Time 13.4 Seconds (11.1-14.7)
[2025-01-10 19:28] LABS: Partial Thromboplastin Time 23.8 Seconds (22.3-36.8)
[2025-01-10 19:36] LABS: Add Urine Microscopic? NO; Appearance Urine Clear (Clear); Glucose Urine UA Negative (Negative); Leukocyte Esterase Ur Negative LEU/UL (Negative); Nitrate Urine Negative (Negative); Specific Grav Ur 1.005 (1.001-1.035)
[2025-01-10 19:39] LABS: Alanine Aminotransferase 28 U/L (6-50); Albumin Level 4.0 g/dL (3.5-5.1); Alkaline Phosphatase 70 U/L (38-126); Anion Gap 13 mmol/L (4-12); Aspartate Amino Transferase 34 U/L (17-59); Bilirubin,Total 1.5 mg/dL (0.2-1.3); Blood Urea Nitrogen 11 mg/dL (9-20); Calcium 8.4 mg/dL (8.4-10.2); Carbon Dioxide 22 mmol/L (22-30); Chloride 103 mmol/L (98-107); Estimated Glomerular Filt Rate > 60; Glucose 98 mg/dL (65-110); Potassium 3.3 mmol/L (3.4-5.0); Sodium 138 mmol/L (137-145); Total Protein 7.2 g/dL (6.3-8.2)
[2025-01-10 19:54] LABS: Cannabinoid Screen Urine Positive (Negative)
--- NOTE | 2025-01-10 23:21 | PC.NURSE ---
Assumed care of patient after receiving bedside report from ANGIE Varela. @ [phone]
[2025-01-11] VITALS: BP 128/79; PULSE 94; RESP 16; TEMP 36.7; O2SAT 99
[2025-01-11] MEDS: HYDROcodone/acetaminophen (*CRX) 5-325 MG TABLET 1 TAB PO (00:14)
[2025-01-11] MEDS: POTASSIUM BICARBONATE 25 MEQ TABEF PO (00:14)
[2025-01-11] MEDS: TETANUS,DIPHTHERIA,AC PERTUSSIS ADULT (0.5 ML) BOOSTRIX IM (00:14)
== END 2025-01-11 01:30 | disposition home or self-care (01) ==
PROVIDERS: Registered Nurse; Emergency Provider Student in an Organized Health Care Education/Training Program; PCP Family Medicine
DX: S01.511A Laceration without foreign body of lip, initial encounter (principal); S02.5XXA Fracture of tooth (traumatic), initial encounter for closed fracture; F10.129 Alcohol abuse with intoxication, unspecified; Y90.8 Blood alcohol level of 240 mg/100 ml or more; F12.90 Cannabis use, unspecified, uncomplicated; E87.6 Hypokalemia; M47.812 Spondylosis without myelopathy or radiculopathy, cervical region; G31.9 Degenerative disease of nervous system, unspecified; Z23 Encounter for immunization; E78.2 Mixed hyperlipidemia; G60.9 Hereditary and idiopathic neuropathy, unspecified; M17.0 Bilateral primary osteoarthritis of knee; Z87.891 Personal history of nicotine dependence; Z79.899 Other long term (current) drug therapy; W19.XXXA Unspecified fall, initial encounter
CPT/HCPCS: 12011; 12051; 36415; 70450; 70486; 72125; 80053; 80307; 81003; 82077; 85025; 85610; 85730; 90471; 90715; 93005; 99284; A9270; J2003